=== PATIENT | male | born 1945 | race Caucasian/White ===

== ENCOUNTER 2017-01-02 14:05 | Emergency (ER) | payer OTHER, MEDICARE ==
[~2017-01-02] VITALS: Ht 170.2 cm; Wt 100.0 kg
[2017-01-02 14:07] VITALS: BP 170/50; PULSE 87; RESP 16; TEMP 97.8; O2SAT 98
[2017-01-02] MEDS ORDERED: ORPHENADRINE INJ 60 MG/2 ML AMP IM ONE (14:30)
[2017-01-02] MEDS ORDERED: KETOROLAC TROMETHAMINE 60 MG/2 ML (IM) VIAL IM ONE (14:30)
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
[2017-01-02] MEDS ORDERED: IBUP800T23 PO (16:10)
[2017-01-02] MEDS ORDERED: CYCL1TAB29 PO (16:10)
== END 2017-01-02 16:51 | disposition home or self-care (01) ==
LOC: NETRI 14:05
DX: S16.1XXA Strain of muscle, fascia and tendon at neck level, initial encounter (principal); M25.511 Pain in right shoulder; S46.911A Strain of unspecified muscle, fascia and tendon at shoulder and upper arm level, right arm, initial encounter; R51 Headache; V43.52XA Car driver injured in collision with other type car in traffic accident, initial encounter; Y93.89 Activity, other specified; Y92.410 Unspecified street and highway as the place of occurrence of the external cause; Y99.9 Unspecified external cause status
CPT/HCPCS: 70450; 71020; 72125; 73030; 96372; 99284; J1885; J2360